=== PATIENT | female | born 1985 | race Caucasian/White ===

== ENCOUNTER 2016-03-25 09:32 | Outpatient (CLI) | payer OTHER | END 2016-03-25 23:00 | LOC: LAB SRH 09:32 | DX: Z34.82 Encounter for supervision of other normal pregnancy, second trimester (principal) | CPT/HCPCS: 90039; 90074; 91162; 91163 ==

== ENCOUNTER 2016-05-26 21:37 | Inpatient (IN) | payer OTHER ==
[~2016-05-26] VITALS: Ht 167.6 cm; Wt 86.2 kg
[2016-05-26 23:52] VITALS: BP 119/62
[2016-05-27] VITALS (10 sets, daily range): BP systolic 94–123; BP diastolic 51–72
--- NOTE | 2016-05-27 00:11 | Provider's Discharge Care Plan ---
Problem, Goal, Plan Problem List 1. Normal spontaneous vaginal delivery Goals: Improve function Instructions: Follow up as directed, Increase activity level, Take meds as directed
--- NOTE | 2016-05-27 00:11 | Provider's Discharge Care Plan ---
Problem, Goal, Plan Problem List 1. Normal spontaneous vaginal delivery Goals: Improve function Instructions: Follow up as directed, Increase activity level, Take meds as directed
--- NOTE | 2016-05-27 08:27 | Progress Note ---
Subjective General Feeling well this a.m. Voiding without difficulty. Ambulating. Tolerating PO. Pain controlled with Ibuprofen and Tylenol. Moderate lochia. Breast feeding. Unsure about contraception. Desires d/c home today. Physical Exam Vital Signs / I&Os Vital Signs Date Time Temp Pulse Resp B/P Pulse O2 O2 Flow FiO2 Ox Delivery Rate 05/27 0400 98.8 66 20 108/58 05/27 0206 58 107/55 05/27 0136 57 111/66 05/27 0106 75 107/59 05/27 0033 60 117/55 05/27 0018 67 109/59 05/27 0003 85 118/60 05/26 2352 97.3 74 20 119/62 Room Air I&O 05/27 0000 05/26 1600 05/26 0800 Intake Total Output Total Balance General Appearance Alert, Oriented X3, Cooperative, No acute distress HEENT Normal exam Lungs Normal exam Cardiovascular Normal exam Abdomen Normal exam, fundus firm below umbilicus Extremities Normal exam Assessment and Plan Problem List 1. Normal spontaneous vaginal delivery Plan Ibuprofen and Tylenol for pain. Increase ambulation. Discharge home today. May stay as guest until tomorrow morning due to late delivery.
--- NOTE | 2016-05-27 08:32 | History & Physical Report ---
Admission Admit Date 05/26/16 Information Source Information Source: Self History Chief Complaint Labor History of Present Illness 30 yo at 37+3 reports regular uterine contractions since 8pm. No LOF, good FM. Patient History 1. Spontaneous onset of labor Social History See chart Medications and Allergies Medications Current Medications Sig/Mirza Start time Last Medication Dose Route Stop Time Status Admin Docusate Sodium 100 MG INSBID PRN 05/27 0015 AC 05/27 PO 0347 Zolpidem Tartrate 5 MG QHS PRN 05/27 0015 AC PO Acetaminophen See Dose Q4H PRN 05/27 0010 AC 05/27 Insts (1) PO 0346 Diphtheria/Tetanus/ 0.5 ML ONCE 05/27 9 AC Acell Pertussis IM Ibuprofen See Dose Q4H PRN 05/27 0010 AC 05/27 Insts (2) PO 0347 Lanolin See Dose ASDIRECTED PRN 05/27 0010 AC Insts (3) TOP Measles/Mumps/ 0.5 ML ONCE 05/27 9 AC Rubella Vaccine Live SC Methylergonovine 0.2 MG ONCE PRN 05/27 0010 AC Maleate IM Oxytocin/Lactated 500 ML ASDIRECTED 05/27 0010 AC Ringer's IV Rho Immune Globulin 300 MCG ONCE 05/27 001 AC IM Acetaminophen/ See Dose Q4H PRN 05/27 0000 AC Hydrocodone Bitart Insts (4) PO Calcium Carbonate 500 MG Q4H PRN 05/26 2330 AC PO Fentanyl/Bupivacaine See Dose TITRATE 05/260 AC HCl Insts (5) EPID Lactated Ringer's 1,000 ML ASDIRECTED 05/260 AC IV Lidocaine HCl 5 ML PRN PRN 05/26 2330 AC TOP Morphine Sulfate 1 MG Q4HR PRN 05/26 2330 AC IV Dose Instructions: (1)Acetaminophen: 1-2 tablets (2)Ibuprofen: 400 MG (2 TABLETS) (3)Lanolin: Apply to nipples (4)Acetaminophen/Hydrocodone Bitart: 1 - 2 TABLETS (5)Fentanyl/Bupivacaine HCl: ADJUSTMENTS PER ANESTHESIA Allergies Coded Allergies: No Known Drug Allergy (11/20/08) Uncoded Allergies: Med Allergies: NKA Review of Systems Constitutional Denies: Fever, Chills. Respiratory Denies: Cough, SOB w/exertion. Cardiovascular Denies: Chest Pain. Gastrointestinal Abdominal Pain. Genitourinary Denies: Dysuria. Physical Exam Vital Signs / I&Os Vital Signs Date Time Temp Pulse Resp B/P Pulse O2 O2 Flow FiO2 Ox Delivery Rate 05/28 819 98.6 65 20 115/61 05/27 0400 98.8 66 20 108/58 05/27 0206 58 107/55 05/27 0136 57 111/66 05/27 0106 75 107/59 05/27 0033 60 117/55 05/27 0018 67 109/59 05/27 0003 85 118/60 05/26 2352 97.3 74 20 119/62 Room Air I&O 05/27 0000 05/26 1600 05/26 0800 Intake Total Output Total Balance General Appearance Alert, Oriented X3, Cooperative, No acute distress HEENT Normal exam Lungs Normal exam Cardiovascular Normal exam Abdomen Normal exam, palpable contractions Pelvic Initial exam showed cervical dilation of 6 cm with bulging bag of fluid. Extremities Normal exam Assessment and Plan Problem List 1. Spontaneous onset of labor Plan Expectant managment Epidural for pain control Augment as needed
[2016-05-28 07:30] VITALS: BP 117/72
[2016-05-28] MEDS ORDERED: NORCO1 TA1 PO (08:55)
== END 2016-05-28 11:30 | disposition home or self-care (01) | DRG 560 ==
LOC: OBC SRH 21:37 → OB SRH 21:42 → OBC SRH 22:30 → OB SRH 23:54
PROVIDERS: ADMIT Obstetrics & Gynecology
PROC: 10E0XZZ Delivery of Products of Conception, External Approach (ICD-10-PCS; principal; 2016-05-27)
DX: O69.2XX0 Labor and delivery complicated by other cord entanglement, with compression, not applicable or unspecified (principal); Z3A.37 37 weeks gestation of pregnancy; Z37.0 Single live birth
CPT/HCPCS: 40011; 83411; 90074; 91162; 91163; 92237; 95059